=== PATIENT | male | born 1995 | race Caucasian/White ===

== ENCOUNTER → 2016-07-24 | Outpatient (REF) | payer OTHER | LOC: M LAB REF 16:23 | PROVIDERS: ATTEND Nurse Practitioner Family | DX: F55.3 Abuse of steroids or hormones (principal); R68.82 Decreased libido; N52.8 Other male erectile dysfunction ==

== ENCOUNTER → 2016-08-29 | Outpatient (CLI) | payer OTHER ==
--- NOTE | 2016-08-30 06:32 | REP ---
Clinical: Acute bronchitis . Comparison: 09/05/2006 . Technique: PA and lateral. Findings: The mediastinum and cardiac silhouette are normal. The lung de leon are clear and without acute consolidation, effusion, or pneumothorax. The skeletal structures are intact and normal. Impression: 1. No acute cardiopulmonary process. Signed by Indra Farris MD 08/30/2016 01:38 A
== END ==
LOC: M WUC 18:03
PROVIDERS: ATTEND Physician Assistant
DX: J20.9 Acute bronchitis, unspecified (principal)

== ENCOUNTER → 2016-10-09 | Outpatient (REF) | payer OTHER ==
[2016-10-13 00:06] LABS: ENDOMYSIAL ABY IgA Negative (Negative)
== END ==
LOC: M LAB REF 17:26
PROVIDERS: ATTEND Nurse Practitioner Family
DX: R19.4 Change in bowel habit (principal)

== ENCOUNTER → 2017-06-11 | Outpatient (CLI) | payer OTHER | LOC: M RAD 12:57 | DX: J34.2 Deviated nasal septum (principal); J01.00 Acute maxillary sinusitis, unspecified | CPT/HCPCS: 70486 ==